=== PATIENT | female | born 2005 | race Two or more races ===

== ENCOUNTER 2025-01-11 19:27 | Emergency (ER) | payer OTHER ==
[~2025-01-11] VITALS: Ht 157.5 cm; Wt 74.1 kg
[2025-01-11] MEDS ORDERED: NO HOME MEDS (19:35)
[2025-01-11 20:07] LABS: BASOPHILS % (AUTO) 0.1 % (0-1); EOSINOPHILS # (AUTO) 0.1 X10'3 (0-0.9); EOSINOPHILS % (AUTO) 0.3 % (0-6); HEMATOCRIT 36.7 % (35.0-45.0); HEMOGLOBIN 12.1 g/dl (12.0-16.0); LYMPHOCYTES # (AUTO) 2.6 X10'3 (1.1-4.8); LYMPHOCYTES % (AUTO) 15.4 % (21-51); MEAN CORPUSCULAR HEMOGLOBIN 27.2 PG (27.0-31.0); MEAN CORPUSCULAR HGB CONC 32.8 g/dL (33.0-36.5); MEAN PLATELET VOLUME 8.1 FL (7.4-10.4); MONOCYTES # (AUTO) 1.9 X10'3 (0-0.9); MONOCYTES % (AUTO) 11.3 % (2-12); NEUTROPHILS # (AUTO) 12.4 X10'3 (1.8-7.7); NEUTROPHILS % (AUTO) 72.9 % (42-75); PLATELET COUNT 275 X10'3 (140-440); RED BLOOD COUNT 4.43 X10'6 (4.20-5.60); RED CELL DISTRIBUTION WIDTH 15.3 % (11.5-14.5); WHITE BLOOD COUNT 16.9 X10'3 (4.5-11.0)
[2025-01-11 20:10] LABS: MONOTEST NEGATIVE (Neg)
[2025-01-11 20:28] LABS: STREP A SCREEN NEGATIVE (Neg)
[2025-01-11] MEDS: CefTRIAXone 2gm/D5W 50ml BAG 50 ML IV ONE (20:34)
[2025-01-11] MEDS: dexamethasone sod phosphate 10mg/ml inj IV STA (20:34)
[2025-01-11] MEDS: normal saline 1000ML IV soln IVB ONE (20:34)
[2025-01-11] MEDS: ketorolac trometh 15mg/ml vial 15 MG/ML ML IV ONE (20:34)
[2025-01-11] MEDS ORDERED: AMOX-580 PO (20:44)
[2025-01-11] MEDS ORDERED: PRED20TA PO (20:44)
[2025-01-11 21:37] VITALS: BP 117/70; PULSE 90; RESP 16; TEMP 97.9; O2SAT 100
== END 2025-01-11 21:30 | disposition home or self-care (01) ==
LOC: ER 19:29
DX: J02.9 Acute pharyngitis, unspecified (principal); Z79.52 Long term (current) use of systemic steroids
CPT/HCPCS: 36415; 85025; 86308; 87077; 87081; 87880; 96365; 96375; 99284; J0696; J1100; J1885; J7030; 96374